=== PATIENT | male | born 1940 ===

== ENCOUNTER 2018-10-03 09:19 | Outpatient (CLI) | payer OTHER ==
[~2018-10-03] VITALS: Ht 165.1 cm; Wt 68.0 kg
== END 2018-10-03 10:22 | disposition home or self-care (01) ==
LOC: OFIC 805 09:19
DX: H91.13 Presbycusis, bilateral (principal); J31.0 Chronic rhinitis; J34.2 Deviated nasal septum; H61.21 Impacted cerumen, right ear